=== PATIENT | female | born 1995 | race Two or more races ===

== ENCOUNTER 2017-10-31 09:35 | Emergency (ER) | payer MEDICAID ==
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
[2017-10-31 11:02] LABS: BACTERIA (WET MOUNT) 3+ BACTERIA SEEN; EPITHELIALS (WET MOUNT) 3+ EPITHELIALS SEEN; RBCS (WET MOUNT) NO RBCS SEEN; T.VAGINALIS (WET MOUNT) NO TRICHOMONAS SEEN; WBCS (WET MOUNT) FEW WBCS SEEN; YEAST (WET MOUNT) NO YEAST SEEN
[2017-10-31] MEDS ORDERED: CEFTRIAXONE INJ 250 MG VIAL IM ONE (11:37)
[2017-10-31] MEDS ORDERED: AZITHROMYCIN 1 GM SUSP PACKET PO ONE (11:38)
[2017-10-31 12:26] LABS: CHLAM PCR NOT DETECTED (NOT DETECT); GON PCR NOT DETECTED (NOT DETECT)
[2017-10-31] MEDS ORDERED: AZITHROMYCIN 250 MG TABLET PO ONE (12:30)
[2017-10-31 12:56] LABS: APPEARANCE,URINE CLEAR; BILIRUBIN,URINE NEGATIVE (NEGATIVE); COLOR,URINE YELLOW; GLUCOSE, URINE NEGATIVE (NEGATIVE); KETONES,URINE NEGATIVE (NEGATIVE); LEUKOCYTE ESTERASE,URINE NEGATIVE (NEGATIVE); NITRITE,URINE NEGATIVE (NEGATIVE); PROTEIN,URINE NEGATIVE (NEGATIVE); URINE SPECIFIC GRAVITY 1.013; UROBILINOGEN,URINE NEGATIVE mg/dL (<2.0)
[2017-10-31] MEDS ORDERED: LIDOCAINE 1% INJ-PF (10 MG/ML) 30 ML SDV INFIL ONE (13:03)
[2017-10-31] MEDS ORDERED: PROMETHAZINE HCL 25 MG TABLET PO ONE (13:04)
[2017-10-31] MEDS ORDERED: LEVONORGESTREL 1.5 MG TABLET (1 TAB/ER-USE) PO ONE (13:04)
[2017-10-31] MEDS ORDERED: LIDOCAINE 1% INJ-PF (10 MG/ML) 30 ML SDV ONE (13:06)
[2017-10-31 15:32] VITALS: BP 116/63
== END 2017-10-31 15:18 | disposition home or self-care (01) ==
LOC: ER 09:35
DX: T76.21XA Adult sexual abuse, suspected, initial encounter (principal); R41.3 Other amnesia; N89.8 Other specified noninflammatory disorders of vagina; F17.210 Nicotine dependence, cigarettes, uncomplicated
CPT/HCPCS: 99285; 96372; 87210; 81025; 81001; 87491; 87591; Q0144; A9270; J3490 ×2; J0696

== ENCOUNTER 2018-07-06 01:40 | Emergency (ER) | payer MEDICAID ==
--- NOTE | 2018-07-06 02:27 | ER Document Report ---
ED General - General Chief Complaint: Back Pain Stated Complaint: LUMP ON LOWER BACK Time Seen by Provider: 07/06/18 02:02 Notes: Patient is a 23-year-old female who presents to the emergency department with a chief complaint of having a lump on her back. She states she fell on her back a week and a half ago and noticed the bump starting a week ago. Her back has been hurting ever since. She is a dancer. She states she has on and off fevers. She denies IV drug abuse does admit to snorting cocaine and smoking marijuana. TRAVEL OUTSIDE OF THE [place] IN LAST 30 DAYS: No - Related Data Allergies/Adverse Reactions: No Known Allergies Allergy (Verified 10/31/17 09:49) Past Medical History - Social History Smoking Status: Former Smoker Frequency of alcohol use: Occasional Drug Abuse: Cocaine Family History: Reviewed & Not Pertinent, Other Renal/ Medical History: Denies: Hx Peritoneal Dialysis Past Surgical History: Reports: Hx Section - Immunizations Hx Diphtheria, Pertussis, Tetanus Vaccination: Yes Review of Systems - Review of Systems Notes: REVIEW OF SYSTEMS: CONSTITUTIONAL : Denies recent illness. Denies recent unintentional weight loss. Denies fever, chills, or sweats. EENT: Denies eye, ear, throat, or mouth pain, discharge, or symptoms. Denies nasal or sinus congestion. CARDIOVASCULAR: Denies chest pain. RESPIRATORY: Denies shortness of breath, cough, congestion, difficulty breathing , or wheezing. GASTROINTESTINAL: Denies nausea, vomiting, and diarrhea. Denies abdominal pain. Denies constipation. GENITOURINARY: Denies difficulty urinating, burning, blood in urine, urgency or frequency. MUSCULOSKELETAL: See HPI SKIN: See HPI HEMATOLOGIC : Denies easy bruising or bleeding. LYMPHATIC: Denies swollen, painful, enlarged glands. NEUROLOGICAL: Denies no numbness or tingling denies weakness. Denies headache. Denies altered mental status. Denies alteration in speech. PSYCHIATRIC: Denies stress, anxiety, alteration in sleep patterns, or depression. All other systems reviewed and negative. Physical Exam - Vital signs Vitals: Temp Pulse Resp BP Pulse Ox 98.0 F 61 18 115/47 L 98 07/06/18 01:51 07/06/18 01:51 07/06/18 01:51 07/06/18 01:51 07/06/18 01:51 - Notes Notes: PHYSICAL EXAMINATION: GENERAL: Appears well, healthy, well-nourished, no acute distress. HEAD: Normocephalic, atraumatic. EYES: PERRL, conjunctiva normal, all extraocular movements intact, sclera nonicteric ENT: Moist mucous membranes. NECK: Supple, no noticeable swelling, redness, rash. Normal range of motion. LUNGS: Equal breath sounds bilaterally and clear to auscultation. No wheezes rales or rhonchi. CARDIOVASCULAR: S1-S2, regular rate, regular rhythm. Radial pulses 2+, normal. ABDOMEN: Normoactive bowel sounds. Soft, nontender, no guarding, no rebound tenderness, and no masses palpated. EXTREMITIES: Normal strength and range of motion, no pitting or edema. No cyanosis. NEUROLOGICAL: Moves all extremities upon command. Strength 5/5 in all extremities. PSYCH: Normal mood, normal affect. SKIN: 5 cm diameter swelling to lumbar area. Warm, dry. No rash, lesions, ulcerations noted. Normal skin turgor. Course - Re-evaluation Re-evalutation: Due to patient's history and physical exam, she will be sent for ultrasound of her lumbar spine to evaluate for possible hematoma. Differential diagnosis includes hematoma, lipoma, or possible abscess. 07/06/18 03:21 Patient's hCG is negative at this time. She will be sent for x-ray of her lumbar spine for evaluation. 07/06/18 04:18 According to the patient's x-ray, patient has a subtle pars articularis deformity, most likely due to the dancing move that she performs. She states that it is repetitive motion and she hits her spine on the ground. She also has a hematoma on her ultrasound. Discharge instructions were given to the patient. She verbalized understanding. Patient is stable for discharge. - Vital Signs Vital signs: Temp Pulse Resp BP Pulse Ox 98.0 F 61 18 115/47 L 98 07/06/18 01:51 07/06/18 01:51 07/06/18 01:51 07/06/18 01:51 07/06/18 01:51 Discharge - Discharge Clinical Impression: Low back pain Qualifiers: Chronicity: acute Back pain laterality: midline Sciatica presence: without sciatica Qualified Code(s): M54.5 - Low back pain Condition: Stable Disposition: HOME, SELF-CARE Instructions: Ice Packs ([facility]), Low Back Pain ([facility]), Warm Packs ([facility]) Additional Instructions: You are seen today in the emergency department for low back pain. One of the reasons you have low back pain is because you have a hematoma (bruise pocket) to your lower back. You also have a slight shift in your spine, which could also be part of the reason you are having back pain. Please see a primary care divider so you can be referred out for physical therapy. You may use Tylenol 1000 mg every 6 hours as needed for the pain. Please alternate warm packs and ice packs for both your injuries. Be sure to stretch after physical exercise. You must rest for the next 1-2 weeks in order for your injuries to heal. Please do not perform the move that you do for your work, because you can injure yourself more.
--- NOTE | 2018-07-06 03:08 | RADIOLOGY REPORT (SQ) ---
EXAM DESCRIPTION: US ABDOMEN LIMITED COMPLETED DATE/TME: 07/06/2018 02:29 CLINICAL HISTORY: 23 years, Female, Eval lumbar spine; possible hematoma COMPARISON: None. TECHNIQUE: Transverse and longitudinal sonographic images of the lower back region, in the region of the patient's clinical/palpable abnormality. LIMITATIONS: None. FINDINGS: There are 2 heterogeneous foci of mixed echogenicity, corresponding to the clinical/palpable abnormality. The larger of these measures 3.7 x 3.6 x 1.1 cm, the other 1.7 x 2.1 x 0.5 cm. These may reflect hematomas with degrading blood products, given patient history. Continued clinical follow-up recommended. IMPRESSION: 2 heterogeneous areas likely reflecting hematomas, as above. Continued clinical follow-up recommended 2010 [employer]- All Rights Reserved
[2018-07-06] MEDS ORDERED: IBUPROFEN 600 MG TABLET PO ONE (03:43)
[2018-07-06] MEDS ORDERED: ACETAMINOPHEN 325 MG TABLET PO ONE (03:43)
[2018-07-06] MEDS ORDERED: LIDOCAINE 5% (700 MG) TRANSDERMAL ADH..PATCH TP ONE (03:44)
--- NOTE | 2018-07-06 04:00 | RADIOLOGY REPORT (SQ) ---
EXAM DESCRIPTION: XR LUMBAR SPINE ANTEROPOSTERIOR, LATERAL, AND OBLIQUES COMPLETED DATE/TME: 07/06/2018 03:24 CLINICAL HISTORY: 23 years, Female, eval possible fracture COMPARISON: None. NUMBER OF VIEWS: 5 TECHNIQUE: 5 view lumbar spine LIMITATIONS: None. FINDINGS: 5 nonrib-bearing lumbar-type vertebral bodies. Height and alignment is preserved. Subtle pars defects at the L5-S1 level are suggested. The disc spaces are maintained. IMPRESSION: Subtle pars defects at L5/S1. Remainder is unremarkable 2010 [employer]- All Rights Reserved
[2018-07-06 04:40] VITALS: BP 106/62
== END 2018-07-06 04:40 | disposition home or self-care (01) ==
LOC: ER 01:40
DX: M54.5 Low back pain (principal)
CPT/HCPCS: 72110; 76705; 81025; 99284

== ENCOUNTER 2020-01-23 00:26 | Emergency (ER) | payer SELFPAY ==
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
--- NOTE | 2020-01-23 01:06 | RADIOLOGY REPORT (SQ) ---
EXAM DESCRIPTION: X-ray, three views of the left hand CLINICAL HISTORY: 24 years Female, pain injury. Pain in the mid fourth finger. COMPARISON: None. FINDINGS: Bone mineralization is normal. Alignment is anatomic. No fracture. No erosions or periostitis. No degenerative change. IMPRESSION: No acute process.
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
[2020-01-23 02:57] VITALS: BP 135/75
== END 2020-01-23 02:58 | disposition home or self-care (01) ==
LOC: ER 00:26
DX: S63.619A Unspecified sprain of unspecified finger, initial encounter (principal); X50.0XXA Overexertion from strenuous movement or load, initial encounter
CPT/HCPCS: 99283